=== PATIENT | female | born 1985 ===

== ENCOUNTER 2018-07-17 12:15 | Outpatient (REF) | payer MEDICARE, SELFPAY ==
[2018-07-17 22:17] LABS: Abs Immature Grans 0.03 k/cumm (0.0-0.09); Absolute Basophil Count 0.04 k/cumm (0.0-0.2); Absolute Eosinophil Count 0.64 k/cumm (0.0-0.7); Absolute Lymphocyte Count 2.32 k/cumm (1.2-3.4); Absolute Monocyte Count 0.62 k/cumm (0.11-0.7); Absolute Neutrophil Count 3.44 k/cumm (1.2-6.7); Basophils % 0.6; HCT 43.6 % (36.0-46.0); HGB 14.8 g/dL (12.0-15.5); Immature Grans % 0.4; Lymphocytes % 32.7; Mean Corp. HGB Concentration 33.9 g/dL (32.0-36.0); Mean Corpuscular Hemoglobin 32.7 pg (27.0-33.0); Mean Corpuscular Volume 96.2 fL (80-95); Mean Platelet Volume 12.2 fL (8.0-11.0); Monocytes % 8.7; Neutrophils % 48.6; Platelet Count 244 x1000/uL (130-400); RBC 4.53 m/cumm (4.00-5.20); RBC Distribution Width 13.8 % (11.7-14.6); White Blood Cell Count 7.09 k/cumm (4.4-10.8)
[2018-07-17 22:45] LABS: TSH (W/Ref FT4) 0.59 uIU/mL (0.358-3.74)
== END 2018-07-17 12:35 ==
LOC: NCHCN 12:15
PROVIDERS: PCP Nurse Practitioner Family; Visit Provider Nurse Practitioner Family
DX: F41.8 Other specified anxiety disorders (principal); B19.20 Unspecified viral hepatitis C without hepatic coma; J45.998 Other asthma
CPT/HCPCS: 80053; 84443; 85025

== ENCOUNTER 2018-07-21 15:51 | Outpatient (REF) | payer MEDICARE, SELFPAY ==
[2018-07-21 22:12] LABS: ALT 60 U/L (12-78); AST 61 U/L (15-37); Albumin 4.1 g/dL (3.4-5.0); Alkaline Phosphatase 85 U/L (46-116); Anion Gap 8.1 mmol/L (3-11); BUN 9 mg/dL (7-18); Bilirubin, Total 0.5 mg/dL (0.2-1.0); CO2 28.9 mmol/L (21.0-32.0); CREATININE 1.22 mg/dL (0.55-1.02); Calcium 9.4 mg/dL (8.5-10.1); Chloride 103 mmol/L (98-107); Estimated GFR 51.75 (mL/min/1.73m2); Glucose 102 mg/dL (70-100); Potassium 4.4 mmol/L (3.5-5.1); Sodium 140 mmol/L (136-145); Total Protein 7.5 g/dL (6.4-8.2)
== END 2018-07-21 16:11 ==
LOC: NCHCN 15:51
PROVIDERS: PCP Nurse Practitioner Family; Visit Provider Nurse Practitioner Family
DX: B19.20 Unspecified viral hepatitis C without hepatic coma (principal)
CPT/HCPCS: 80053

== ENCOUNTER 2018-10-09 21:58 | Outpatient (REF) | payer MEDICARE, SELFPAY ==
[2018-10-09 22:59] LABS: *AMPHETAMINES SCREEN URINE Negative (Negative); *BARBITURATES SCREEN URINE Negative (Negative); *BENZODIAZEPINES SCREEN URINE Negative (Negative); Cannabinoids THC POSITIVE (Negative); Cocaine Screen,Urine Negative (Negative); METHADONE URINE SCREEN Negative (Negative); OPIATES URINE SCREEN Negative (Negative)
[2018-10-09 23:06] LABS: Tricyclic Antidepressants Negative (Negative)
[2018-10-12 12:26] LABS: Acetone, U Not Detected; Ethanol, U Not Detected; Isopropanol, U Not Detected; Methanol, U Not Detected
[2018-10-15 11:55] LABS: Buprenorphine 32.8 ng/mL; Norbuprenorphine 80.5 ng/mL
== END 2018-10-09 22:18 ==
LOC: NCHCN 21:58
PROVIDERS: PCP Nurse Practitioner Family; Visit Provider Family Medicine
DX: F11.21 Opioid dependence, in remission (principal); Z79.899 Other long term (current) drug therapy
CPT/HCPCS: 80307; 80320